=== PATIENT | male | born 1975 | race Caucasian/White ===

== ENCOUNTER 2023-06-24 10:10 | Emergency (ER) | payer OTHER, SELFPAY ==
[2023-06-24 10:38] LABS: Urine Albumin Negative (Neg - Trace); Urine Bilirubin Negative (Negative); Urine Character Clear (Clear); Urine Color Yellow; Urine Glucose Negative (Negative); Urine Ketone Negative (Negative); Urine Leukocyte Negative (Negative); Urine Nitrite Negative (Negative); Urine Occult Blood Negative (Negative); Urine Urobilinogen Negative (Neg - 1+)
[2023-06-24 11:44] VITALS: BMI 42.5
[2023-06-24] MEDS: DILAUDID 0.5 MG IV (12:22)
[2023-06-24] MEDS: TORADOL 15 MG IV (12:25)
[2023-06-24] MEDS: ZOFRAN 4 MG IV (12:25)
[2023-06-24] MEDS: NSS 1000 IV (12:28)
--- NOTE | 2023-06-24 12:31 | ED.GENMED ---
History of Present Illness
General
Chief Complaint: Flank Pain
Source: patient and spouse
Exam Limitations: none
Time Seen by Provider: 06/24/23 11:44
Nursing documentation reviewed up to this point in time: agreed with
Travel History
Have you had any contact with someone who has COVID-19?: No
Do you have any symptoms of coronavirus? Fever > 100 degrees, chills, cough, shortness of breath, sore throat, loss of taste or smell, muscle aches, or headache?: No
History of Present Illness
History of Present Illness:
Patient is a 47-year-old male who who presents to the emergency department with right flank pain for the past 2 days. Patient awoke this morning pain was worse with nausea and vomiting. Patient has felt hot and cold and had temperature of 100.3.
Patient was diagnosed 2 days ago with a 3 mm right stone. Unsure of the location. Patient was seen at another hospital. Patient has a history of kidney stones. Patient denies any diarrhea. Patient denies chest pain or shortness of breath.
Patient denies dysuria or hematuria.
Past History
Past History
ED Past Medical History: Other (Kidney stones)
Social History
Tobacco: Non-smoker
Review of Systems
Review of Systems
All Other Systems: ROS reviewed and negative except as documented in HPI and ROS
Constitutional: Reports fever, fatigue and chills
EENT: Reports no symptoms
Respiratory: Reports no symptoms
Cardiac: Reports no symptoms
ABD/GI: Reports abdominal pain, nausea and vomiting; Denies diarrhea
: Reports flank pain; Denies dysuria, frequency, urgency or bleeding
Musculoskeletal: Reports back pain
Skin: Reports no symptoms
Neurological: Reports no symptoms
Hematologic/Lymphatic: Reports no symptoms
Phy Exam
Physical Exam
Physical Exam:
Physical Exam
General: mild distress, alert and appropriate, well nourished, well hydrated
HENT: Normocephalic, supple
Eyes: Clear sclera, conjuctiva without injection
Heart: Regular rhythm and rate. No S3, S4. No murmur.
Lungs: No respiratory distress, no stridor, lung sounds clear and equal bilaterally
Abdomen: Soft, nontender, no organomegaly, mild right CVA tenderness, BS good
Neuro: Alert and oriented x 3, CN II - XII intact, no motor focality, no cerebellar dysfunction
Skin: no rash
Psychiatric: well kept. interactive and cooperative
Extremities: No edema, cyanosis, tenderness
Course
Orders/Labs/Results
Orders:
Orders
06/24/23 10:21
Urinalysis Reflex To Culture Urgent
Date Specimen was Collected: 06/24/23
Time Specimen was Collected: 10:17
06/24/23 11:45
0.9% Sodium Chloride 1000 ml [Nss] 1,000 ml IV BOLUS
HYDROmorphone [Dilaudid] 0.5 mg IV NOW STA
Ketorolac [Toradol] 15 mg IV NOW STA
Ondansetron Injectable [Zofran] 4 mg IV NOW STA
US Renal With Bladder Urgent
Comment: bladder not full ok, looking at ureteral jets
Reason For Exam: right flank pain
06/24/23 12:21
Complete Blood Count/With Diff Urgent
Comprehensive Metabolic Panel Urgent
Abnormal Lab Results
06/24/23
12:21
WBC 12.5 H 10^3/uL
(4.8-10.8)
Abs Immat Gran (auto) 0.1 H 10^3/uL
(0-0.05)
Absolute Neuts (auto) 9.5 H 10^3/uL
(1.4-6.5)
Absolute Monos (auto) 1.3 H 10^3/uL
(0.1-0.6)
Neutrophils % 76.2 H %
(42.2-75.2)
Lymphocytes % 12.2 L %
(20.5-51.1)
Monocytes % 10.6 H %
(1.7-9.3)
Creatinine 1.7 H mg/dL
(0.7-1.3)
Glucose 100 H mg/dl
(70-99)
06/24/23 12:21
06/24/23 12:21
Vital Signs
Initial and Last Documented VS:
Initial Vital Signs
Temp
99.0 F
06/24/23 10:17
Last Documented Vital Signs
Temp Pulse Resp BP Pulse Ox
99.0 F 77 16 142/87 98
06/24/23 10:17 06/24/23 14:22 06/24/23 14:22 06/24/23 14:22 06/24/23 14:22
*Radiology
Radiology exam reviewed: radiology read reviewed (4 mm UVJ stone with mild hydronephrosis)
*Pulse Oximetry
Patient hypoxic: no
*Salvage Determiner Interpretation
Rate: Salvage Determiner- N/A
*Critical Care Note
Total Time (30-74mins, 75-104mins- exclusive of procedures): Not Applicable
Update Note
Update Note:
Will attempt to get report from [place]
Patient is without pain at this time. Patient has prescriptions for Flomax and Percocet. Patient has urology follow-up.
ED Attending Note
-
Portions of this chart may have been created with voice recognition software.� Occasional wrong word or��sound alike� substitutions may have occurred due to the inherent limitations of voice recognition software.
Discharge Plan
Departure
Patient Disposition: Home (Routine Discharge)
Date of Disposition: 06/24/23
Time of Disposition: 15:18
Patient with high blood pressure during this ER visit?: No
Condition: Good
Covid-19: Not Applicable
Discharge Problem:
Renal colic on right side, Ureterolithiasis
Instructions: Kidney Stones (DC), Renal Colic (DC), Narcotic Pain Medication
Prescriptions:
New
ondansetron 8 mg tablet,disintegrating
8 mg PO TID PRN (Reason: nausea and vomiting) Qty: 20 0RF
ketorolac 10 mg tablet
10 mg PO QID PRN (Reason: pain) 5 Days Qty: 20 0RF
Referrals:
NONE,* [Family Provider] -
Activity Restrictions/Additional Instructions:
Continue present medications and follow-up with your urologist as instructed.
Interventions
Interventions:
*Risk Screen - Suicide Last Done: 06/24/23 10:16
*General Assessment Last Done: 06/24/23 10:16
*Neglect/Abuse Screening Last Done: 06/24/23 10:16
ED- Fall Risk Assessment Last Done: 06/24/23 11:44
*ED COVID-19 Vaccine History Last Done: 06/24/23 10:16
TN-Qlnrkm-Vieckqxulg Assessment Last Done: 06/24/23 11:46
ED-Male Genitourinary Assessment Last Done: 06/24/23 11:46
[2023-06-24 12:35] VITALS: BP 128/78
[2023-06-24 12:40] LABS: % Basophils 0.2 % (0-2); % Eosinophils 0.4 % (0-6); % Immature Granulocytes 0.4 % (0-0.5); % Lymphocytes 12.2 % (20.5-51.1); % Monocytes 10.6 % (1.7-9.3); % Neutrophils 76.2 % (42.2-75.2); Absolute Eosinophils 0.1 10^3/uL (0-0.7); Absolute Immature Granulocytes 0.1 10^3/uL (0-0.05); Absolute Lymphocytes 1.5 10^3/uL (1.2-3.4); Absolute Monocytes 1.3 10^3/uL (0.1-0.6); Absolute Neutrophils 9.5 10^3/uL (1.4-6.5); Hematocrit 41.6 % (39.0-52.0); Hemoglobin 14.9 g/dL (13.0-18.0); Mean Corp Hgb Conc. 35.8 g/dL (33.0-37.0); Mean Corpuscular Hgb 30.2 pg (27.0-31.0); Mean Corpuscular Volume 84.2 fL (80.0-94.0); Nucleated Red Blood Cells % 0 % (-); Platelet Count 331 10^3/uL (130-400); Red Blood Cell Count 4.94 10^6/uL (4.70-6.10); Red Cell Dist. Width 12.5 % (11.5-14.5); White Blood Cell Count 12.5 10^3/uL (4.8-10.8)
[2023-06-24 12:57] LABS: ALT (SGPT) 50 U/L (0-50); AST (SGOT) 35 U/L (17-59); Albumin 4.4 g/dl (3.5-5.0); Alkaline Phosphatase 91 U/L (38-126); Blood Urea Nitrogen 15 mg/dl (9-20); Calcium 9.6 mg/dl (8.4-10.2); Carbon Dioxide 26 mmol/L (22-30); Chloride 106 mmol/L (98-107); Estimated Creatinine Clearance 68 ml/min; Glucose 100 mg/dl (70-99); Potassium 4.1 mmol/L (3.5-5.1); Sodium 137 mmol/L (135-145); Total Bilirubin 0.8 mg/dl (0.2-1.3); Total Protein 7.3 g/dl (6.3-8.2); eGFR 49.73
[2023-06-24 14:22] VITALS: BP 142/87
== END 2023-06-24 15:35 | disposition home or self-care (01) ==
LOC: EMR 10:10
PROVIDERS: Emergency Medicine; EMERGENCY PHYSICIAN Emergency Medicine
DX: N20.1 Calculus of ureter (principal); Z87.442 Personal history of urinary calculi
CPT/HCPCS: 99284; 96374; 96375 ×2; 96361 ×2; 76770; 80053; 81003; 85025